=== PATIENT | female | born 1965 | race Caucasian/White ===

== ENCOUNTER 2017-12-12 16:52 | Emergency (ER) | payer BC ==
[2017-12-12 17:12] VITALS: BP 139/82
--- NOTE | 2017-12-12 19:15 | UC ---
Skin Complaint HPI - HPI Summary HPI Summary: fell 12/07 while hiking has a 3 cm scabbed laceration on right forearm. has increasing erythema around wound no drainage - History of Current Complaint Chief Complaint: UCSkin Time Seen by Provider: 12/12/17 19:06 Stated Complaint: CUT ON RIGHT ARM Hx Obtained From: Patient ?: No Onset/Duration: Sudden Onset, Lasting Days - 5 Timing: Constant Pain Intensity: 2 Pain Scale Used: 0-10 Numeric Location: Discrete - right forearm Character: Redness Aggravating Factor(s): Nothing Alleviating Factor(s): Nothing Related History: Trauma - Allergy/Home Medications Allergies/Adverse Reactions: Allergies Allergy/AdvReac Type Severity Reaction Status Date / Time No Known Allergies Allergy Verified 12/12/17 17:13 Review of Systems Constitutional: Negative Skin: Other - increasing erythema area 5 day old laceration on right forearm Eyes: Negative ENT: Negative Respiratory: Negative Cardiovascular: Negative Gastrointestinal: Negative Genitourinary: Negative Motor: Negative Neurovascular: Negative Musculoskeletal: Negative Neurological: Negative Psychological: Negative Is Patient Immunocompromised?: No All Other Systems Reviewed And Are Negative: Yes PMH/Surg Hx/FS Hx/Imm Hx Previously Healthy: Yes - Surgical History Surgical History: Yes Surgery Procedure, Year, and Place: RIGHT SHOULDER, - Family History Known Family History: Positive: None, Other - AFib - mother - Social History Occupation: Employed Full-time Lives: With Family Alcohol Use: Daily Alcohol Amount: 1 drink Substance Use Type: None Smoking Status (MU): Never Smoked Tobacco - Immunization History Most Recent Tetanus Shot: not sure Physical Exam Triage Information Reviewed: Yes Appearance: Well-Appearing, No Pain Distress, Well-Nourished Vital Signs: Initial Vital Signs Temp 97.7 F 12/12/17 17:10 Pulse 57 12/12/17 17:10 Resp 18 12/12/17 17:10 BP 139/82 12/12/17 17:10 Pulse Ox 100 12/12/17 17:10 Vital Signs Reviewed: Yes Eye Exam: Normal Eyes: Positive: Conjunctiva Clear ENT Exam: Normal ENT: Positive: Normal ENT inspection, Hearing grossly normal. Negative: Trismus , Muffled voice, Hoarse voice Dental Exam: Normal Neck exam: Normal Neck: Positive: Supple, Nontender, No Lymphadenopathy Respiratory Exam: Normal Respiratory: Positive: Chest non-tender, No respiratory distress, No accessory muscle use Cardiovascular Exam: Normal Cardiovascular: Positive: RRR, Pulses Normal, Brisk Capillary Refill Musculoskeletal Exam: Normal Musculoskeletal: Positive: Strength Intact, ROM Intact, No Edema Neurological Exam: Normal Neurological: Positive: Muscle Tone Normal Psychological Exam: Normal Skin Exam: Other Skin: Positive: Other - 3 cm laceration with scab and erthema -firmness around wound no drainage noted Course/Dx - Course Course Of Treatment: soap and water wash bid, warm soaks 4-5 times a day, keflex , follow with pcp prn - Diagnoses Provider Diagnoses: wound infection right forearm Discharge - Sign-Out/Discharge Documenting (check all that apply): Patient Departure - Discharge Plan Condition: Stable Disposition: HOME Prescriptions: Cephalexin CAP* [Keflex CAP*] 500 mg PO QID #20 cap Patient Education Materials: Wound Infection (ED), Warm Compress or Soak (ED) Referrals: Joanne Novak MD [Primary Care Provider] - If Needed - Billing Disposition and Condition Condition: STABLE Disposition: Home
== END 2017-12-12 19:30 | disposition home or self-care (01) ==
LOC: UCEAST 16:52
DX: S51.811A Laceration without foreign body of right forearm, initial encounter (principal); L08.9 Local infection of the skin and subcutaneous tissue, unspecified; W18.30XA Fall on same level, unspecified, initial encounter; Y93.01 Activity, walking, marching and hiking; Y92.9 Unspecified place or not applicable; Z82.49 Family history of ischemic heart disease and other diseases of the circulatory system
CPT/HCPCS: 99212; G0463

== ENCOUNTER 2018-09-16 09:09 | Day surgery (SDC) | payer BC ==
[~2018-09-16 09:09] MED LIST: Buffered Lidocaine 1% SYRIN* 1 ML/SYRINGE INTRADERM ONE; Dexamethasone IV* 4 MG/ML 1 ML (4 MG) IV SLOW PU ONE; Famotidine TAB* 20 MG PO ONE; Lactated Ringers 1000 ML Bag* 1,000 ML IV SCH; Lidocaine 2% PF * 5 ML VIAL ONE; Midazolam* 1 MG/ML 2 ML VIAL (2 MG) ONE; Propofol* 10 MG/ML 20 ML BTL ONE; fentaNYL* 50 MCG/ML 2 ML VIAL (100 MCG VIAL) ONE
[2018-09-16] MEDS ORDERED: Famotidine TAB* 20 MG ONE (09:36)
[2018-09-16] MEDS ORDERED: ceFAZolin 2 GM PREMIX in ORs 2 GM/50 ML BAG IVPB ONE (09:36)
[2018-09-16] MEDS ORDERED: Buffered Lidocaine 1% SYRIN* 1 ML/SYRINGE INTRADERM ONE (09:36)
[2018-09-16] MEDS ORDERED: Dexamethasone IV* 4 MG/ML 1 ML (4 MG) ONE (09:36)
[2018-09-16] MEDS ORDERED: EPINEPHRINE 1 MG/ML 1 ML VIAL ONE (10:32)
[2018-09-16] MEDS ORDERED: Bupivacaine 0.5% W/EPI SDV* 30 ML VIAL ONE (10:33)
[2018-09-16] MEDS ORDERED: Propofol* 10 MG/ML 20 ML BTL ONE (11:18)
[2018-09-16] MEDS ORDERED: EPHEDrine (Pressors)* 50 MG/ML VIAL ONE (11:27)
[2018-09-16] MEDS ORDERED: Ondansetron INJ* 2 MG/ML VIAL ONE (11:29)
[2018-09-16] MEDS ORDERED: Naloxone* 0.4 MG/ML 1 ML VIAL IV PRN (11:34)
[2018-09-16] MEDS ORDERED: HYDROcodone/ACETAMIN 5-325 MG* 1 TAB PO PRN (11:34)
[2018-09-16] MEDS ORDERED: fentaNYL* 50 MCG/ML 2 ML VIAL (100 MCG VIAL) IV PRN (11:34)
[2018-09-16] MEDS ORDERED: PROCHLORPERAZINE INJ 5 MG/ML 2 ML VIAL IV PRN (11:34)
[2018-09-16] MEDS ORDERED: Ketorolac INJ* 30 MG/ML 1 ML VIAL IV PRN (11:34)
[2018-09-16] MEDS ORDERED: DiMENhydriNATE IV* 50 MG/ML VIAL IV PUSH PRN (11:34)
[2018-09-16] MEDS ORDERED: Acetaminophen TAB* 325 MG PO PRN (11:34)
[2018-09-16 12:49] VITALS: BP 132/81
--- NOTE | 2018-09-19 17:11 | OP ---
OPERATIVE REPORT: DATE OF OPERATION: 09/16/18 DATE OF : 65 SURGEON: Justo Wick MD ACTIVITIES ATTENDANT: LANE Case A physician yard assistant was required for the length of the procedure for assistance with positioning, k nee manipulation, and closure. ANESTHESIOLOGIST: Dr. Justo Coughlin. ANESTHESIA: General anesthesia, 20 cc of local anesthesia, Marcaine 0.5% with epinephrine placed sub cutaneous. PRE-OP DIAGNOSES: 1. Right knee lateral meniscus tear. 2. Right knee osteoarthritis. POST-OP DIAGNOSES: 1. Right knee lateral meniscus tear. 2. Right knee osteoarthritis. OPERATIVE PROCEDURE: Right knee arthroscopic partial lateral meniscectomy. TOURNIQUET TIME: Approximately 21 minutes, 300 mmHg, right thigh. YGHO-KG-CODT TIME: 21 minutes. ANTIBIOTICS: 2 g Ancef IV. IV FLUIDS: See Anesthesia note. SPECIMEN: None. IMPLANTS: None. ESTIMATED BLOOD LOSS: Minimal. COMPLICATIONS: None. INDICATIONS FOR PROCEDURE: The patient is a 53-year-old woman, who had posterior knee pain for 8 mon ths preoperatively. She did not respond to a full spectrum of nonoperative treatment. Swelling and pain especially exacerbated with activity. Preoperative imaging revealed a meniscus tear of the lateral meniscus, possibly a root tear of the la teral meniscus and complex tear of the posterior horn and body of the lateral meniscus. The patient did have some degenerative changes notable on x-ray and MRI. Discussed meniscus treatment including possible partial lateral meniscectomy, possible posterior root repair. Discussed risks and potential complications including bleeding, infection, nerve and blood vessel injury. Most prominent and possible complications were continued knee pain and continued arth ritic degeneration of the knee. DESCRIPTION OF PROCEDURE: In preoperative holding, the patient signed a written consent. Operative extremity was marked in preoperative holding. The patient was taken back to the operating room and p laced supine on operating room table. Sedated and intubated. A tourniquet was placed around the righ t proximal thigh. Right distal thigh was placed in a circumferential thigh gamboa. The right lower e xtremity was prepped and draped. Surgical time-out was performed. Esmarch was applied and tournique t was elevated to 300 mmHg. I made a standard anterolateral knee arthroscopy portal using standard technique. I commenced my diag nostic arthroscopy. The patient had some grade 1 changes on the undersurface of the patella. I next moved to the medial compartment. I noted some early osteophytes, spurring about the medial femoral condyle. I took some photographs of these. No medial meniscus tear evident. I next moved to the in tercondylar notch. ACL and PCL intact. I next moved to the lateral compartment. The patient clearly had some tearing of the lateral meniscus. However, there were also articular cartilage changes in t he lateral compartment. I made an anteromedial knee arthroscopy portal under direct visualization. I debrided synovitic tissue in the anterior aspect of the knee. I then inspected the lateral compart ment more closely. There was some complex tearing about the body and posterior horn of the meniscus. There were multiple flaps of tissue, but no significantly displaced flap. There was clear tearing as well at the posterior root. I debrided the lateral meniscus back to a stable rim of tissue. There were no longer flaps. I debri ded the posterior root back to a margin of healthy tissue. This made clear that the patient's root te ar was not full-thickness, which is good. I got an excellent photograph of this intact root. I assessed the articular cartilage damage in the lateral compartment. There was very diffuse loss of partial-thickness cartilage in the lateral femoral condyle. Seemed as if there had been a loss of ca rtilage at some point with some degree of fibrocartilage healing overlying the loss of depth of gee l articular cartilage. This may have represented an old injury that had partially healed. The lab director ior half of the lateral tibial plateau had a grade 3 injury, articular cartilage loss to it. I took several additional photos around the knee, removed a bit more anterior synovitis. There may h ave been some early spurring on the distal end of the patella, but otherwise the patellofemoral margarita rtment looked well preserved. Getting a more faraway look at the lateral femoral condyle in extension that articular cartilage defect looked deeper in a smaller area, although the loss of articular cart ilage was much more diffuse, but not as deep uniformly. Removed all instruments and fluid from the knee. Closed skin incisions with figure- of-eight and 12 stitches using nylon 3-0 suture. Local anesthesia injected in the subcutaneous tissue about those in cisions. Xeroform, 4x4s, ABD, sterile Webril, Jayant bandage foot to proximal thigh. Dropped tournique t. Placed cooling unit. DISPOSITION: The patient was extubated and taken to the PACU. Wound care instructions provided, asp irin for 2 weeks and Percocet p.r.n. The patient will start physical therapy immediately. She will see me in the office 10 to 14 days postoperatively. [id number]/[facility] #: [id number]
== END 2018-09-16 12:50 | disposition home or self-care (01) ==
LOC: OR 09:09
PROVIDERS: ATTEND Orthopaedic Surgery
DX: S83.271A Complex tear of lateral meniscus, current injury, right knee, initial encounter (principal); M17.11 Unilateral primary osteoarthritis, right knee; M54.12 Radiculopathy, cervical region; X58.XXXA Exposure to other specified factors, initial encounter
CPT/HCPCS: A9270-GY; J0690; J1100; J2250; J2405; J2704; J3010